=== PATIENT | male | born 1960 ===

== ENCOUNTER 2017-01-24 04:39 | Emergency (ER) | payer SELFPAY ==
[2017-01-24 04:46] VITALS: BP 139/95
[2017-01-24] MEDS ORDERED: ZOFRAN ODT ONE (04:50)
[2017-01-24] MEDS ORDERED: ZOFRAN ODT PO ONE (04:58)
[2017-01-24 05:46] LABS: Hemoglobin 16.1 gm/dl (11.8-15.2); Mean Corpuscular HGB Conc 34 % (32-34); Mean Corpuscular Hemoglobin 31 pg (28-32); Mean Corpuscular Volume 89 fl (84-94); Mean Platelet Volume 9.5 fl (6-12); Platelet Count 164 K/mm3 (140-440); Red Blood Count 5.27 M/mm3 (3.65-5.03); Red Cell Distribution Width 13.5 % (13.2-15.2); White Blood Count 9.6 K/mm3 (4.5-11.0)
[2017-01-24 05:56] LABS: Anion Gap 21 mmol/L; BUN/Creatinine Ratio 21.25; Blood Urea Nitrogen 17 mg/dL (9-20); Carbon Dioxide 21 mmol/L (22-30); Chloride 104.8 mmol/L (98-107); Glucose 135 mg/dL (75-100); Potassium 3.6 mmol/L (3.6-5.0); Sodium 143 mmol/L (137-145)
[2017-01-24 07:52] LABS: Blastocytes % (Manual) 0 %
[2017-01-24 07:53] LABS: Diff Status Complete; Large Platelets Few; RBC Morphology Normal
== END 2017-01-24 05:19 | disposition left against medical advice (07) ==
LOC: ED 04:39
DX: R11.0 Nausea (principal); Z53.21 Procedure and treatment not carried out due to patient leaving prior to being seen by health care provider
CPT/HCPCS: 36415; 80048; 85007; 85025; Q0162